=== PATIENT | male | born 2000 | race Caucasian/White ===

== ENCOUNTER 2021-02-16 15:25 | Emergency (ER) | payer SELFPAY ==
[~2021-02-16] VITALS: Ht 170.2 cm; Wt 80.0 kg
[2021-02-16 15:31] VITALS: BP 155/79
[2021-02-16] MEDS ORDERED: DEXAMETHASONE SOD PHOS 10 MG/ML VIAL. IM ONE (15:45)
[2021-02-16] MEDS ORDERED: TRIA15OI TP (15:52)
[2021-02-16] MEDS ORDERED: PRED-220 PO (15:52)
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
== END 2021-02-16 15:56 | disposition home or self-care (01) ==
LOC: ER 15:25
DX: L23.7 Allergic contact dermatitis due to plants, except food (principal)
CPT/HCPCS: 96372; 99283; J1100